=== PATIENT | male | born 1995 | race African-American/Black ===

== ENCOUNTER 2023-03-30 15:19 | Emergency (ER) | payer BC | END 2023-03-30 16:03 | disposition home or self-care (01) | LOC: MW.ED 15:19 | DX: S00.31XA Abrasion of nose, initial encounter (principal); K21.9 Gastro-esophageal reflux disease without esophagitis; Z79.899 Other long term (current) drug therapy; Z91.040 Latex allergy status; Z02.89 Encounter for other administrative examinations; Y04.0XXA Assault by unarmed brawl or fight, initial encounter | CPT/HCPCS: 99281; 99283 ==

== ENCOUNTER 2025-02-25 14:04 | Emergency (ER) | payer SELFPAY ==
[2025-02-25] MEDS: Lactated Ringers 1,000 ML IV ONE (15:25)
[2025-02-25] MEDS: Ketorolac 30 MG/ML SDV IVPUSH ONE (15:27)
[2025-02-25] MEDS: diphenhydrAMINE 50 MG/ML SDV IVPUSH ONE (15:27)
== END 2025-02-25 16:30 | disposition home or self-care (01) ==
LOC: MW.ED 14:04
DX: R51.9 Headache, unspecified (principal); Z91.040 Latex allergy status
CPT/HCPCS: 96374; 96375; 99283; J1200; J1885; J2765; J7120